=== PATIENT | male | born 1950 | race Caucasian/White ===

== ENCOUNTER → 2017-10-28 12:02 | Outpatient (CLI) | payer MEDICARE, SELFPAY ==
[2017-10-28 14:03] LABS: Alanine Aminotransferase 58 U/L (12-78); Albumin Level 3.7 gm/dL (3.4-5.0); Albumin/Globulin Ratio 1.1 (1.1-1.8); Alkaline Phosphatase 66 U/L (46-116); Anion Gap 14.1 mEq/L (5-15); Aspartate Amino Transferase 29 U/L (15-37); Bilirubin,Total 0.4 mg/dL (0.2-1.0); Blood Urea Nitrogen 16 mg/dL (7-18); Calcium 8.8 mg/dL (8.5-10.1); Carbon Dioxide 27 mmol/L (21.0-32.0); Chloride 104 mmol/L (98-107); Creatinine,Serum 1.01 mg/dL (0.70-1.30); Estimated Glomerular Filt Rate 74 ml/min (>60); GFR (African American) 90 ML/MIN (>60); Globulin 3.4 gm/dl (1.3-3.2); Glucose 138 mg/dL (74-106); Potassium 4.1 mmoL/L (3.5-5.1); Sodium 141 mmol/L (136-145); Total Protein,Serum 7.1 gm/dL (6.4-8.2)
[2017-10-28 16:43] LABS: Basophils # 0.1 K/mm3 (0-0.2); Basophils % 0.9 % (0.1-2.0); Eosinophils # 0.3 K/mm3 (0.0-0.4); Eosinophils % 4.2 % (0.1-12.0); Hemoglobin 14.1 g/dL (14.1-18.0); Lymphocytes # 2.2 K/mm3 (0.7-4.5); Lymphocytes % 29.4 K/mm3 (10-50); Mean Corpuscular HGB Conc 33.6 g/dL (31.8-35.4); Mean Corpuscular Hemoglobin 28.6 pg (27.0-31.2); Mean Corpuscular Volume 85.2 fl (80-94); Mean Platelet Volume 8.1 fl (7.4-10.4); Monocytes # 0.4 K/mm3 (0.1-1.0); Monocytes % 5.7 % (1.7-9.3); Neutrophils # 4.4 K/mm3 (1.8-7.8); Neutrophils % 59.8 % (37.0-80.0); Platelet Count 246 K/mm3 (142-424); Red Blood Count 4.93 M/mm3 (4.60-6.20); Red Cell Distribution Width 13.5 % (11.5-17.5); White Blood Count 7.4 K/mm3 (4.8-10.8)
[2017-10-29 10:36] LABS: Hemoglobin A1C 6.1 % (0.0-7.0)
[2017-10-29 12:16] LABS: Cytomegalovirus (CMV) Ab, IgG <0.60 U/mL (0.00-0.59); Cytomegalovirus (CMV) Ab, IgM <30.0 AU/mL (0.0-29.9); Toxoplasma gondii Ab,IgG,Qn <3.0 IU/mL (0.0-7.1)
[2017-10-29 17:20] LABS: EBV Ab VCA, IgM <36.0 U/mL (0.0-35.9)
[2018-01-24 10:12] LABS: Toxoplasma gondii Ab,IgM,Qn <3.0
== END ==
PROVIDERS: PCP Internal Medicine Adolescent Medicine; Visit Provider Nurse Practitioner Family
DX: R59.0 Localized enlarged lymph nodes (principal); Z00.00 Encounter for general adult medical examination without abnormal findings; R73.09 Other abnormal glucose
CPT/HCPCS: 36415; 80053; 83036; 85025; 86644; 86645; 86665; 86777

== ENCOUNTER → 2017-11-03 09:12 | Outpatient (CLI) | payer MEDICARE, SELFPAY ==
--- NOTE | 2017-11-03 09:20 | US_ITS ---
US soft tissue head and neck CLINICAL INDICATION: ITS.REASON: LYMPHADENOPATHY RT CERVICAL REGION ORDERING PHYSICIAN: Rich Del Valle MD PATIENT AGE: 67 years COMPARISON: None FINDINGS: Survey of the right side of the neck demonstrates a solid-appearing 4.5 x 2.6 cm area of decreased echogenicity in the lower aspect of the right parotid region corresponding to the palpable abnormality. This could represent either parotid mass or unusual enlarged lymph node. Suggest CT scan of the neck without and with contrast for further evaluation. This does not appear to represent an abscess or cystic lesion. IMPRESSION: 4.5 x 2.6 cm hypoechoic lesion in the right neck corresponding to the palpable abnormality and may represent a parotid mass. Recommend CT of the neck without and with contrast for more thorough evaluation
== END ==
PROVIDERS: Family Provider Internal Medicine Adolescent Medicine; PCP Internal Medicine Adolescent Medicine; Visit Provider Internal Medicine Adolescent Medicine
DX: R59.0 Localized enlarged lymph nodes (principal)
CPT/HCPCS: 76536

== ENCOUNTER → 2017-11-08 07:13 | Outpatient (CLI) | payer MEDICARE, SELFPAY ==
[2017-11-08 08:43] LABS: Blood Urea Nitrogen 18 mg/dL (7-18); Creatinine,Serum 1.08 mg/dL (0.70-1.30); Estimated Glomerular Filt Rate 69 ml/min (>60); GFR (African American) 83 ML/MIN (>60)
== END ==
PROVIDERS: Visit Provider Nurse Practitioner Family
DX: R59.0 Localized enlarged lymph nodes (principal)
CPT/HCPCS: 36415; 82565; 84520

== ENCOUNTER → 2017-11-11 08:44 | Outpatient (CLI) | payer MEDICARE, SELFPAY ==
--- NOTE | 2017-11-11 08:50 | CT_ITS ---
CT soft tissue neck wo/w con INDICATION: ITS.REASON: LYMPHADENOPATHY OF RT CERVICAL REGION ORDERING PHYSICIAN: Mariam Oates PATIENT AGE: 67 years COMPARISON: Ultrasound of 11/03/2017 TECHNIQUE: Axial images from the floor of obtained without and with 75 mL of Isovue-370 . Sagittal and coronal reformatted images are reviewed as well. FINDINGS: There is a 3.6 x 3.3 x 2.7 cm well-circumscribed homogeneous slightly hyperdense mass involving the lower pole of the right lobe of the thyroid gland. This is epicentered within the superficial lobe of the thyroid gland. There is mild homogeneous enhancement of this lesion with some increased vascularity along the inferior margin. This has the characteristics of a pleomorphic adenoma. There are scattered small lymph nodes present in both sides of the neck. No dominant adenopathy is evident. Internal jugular nodes on the right measure up to 14 mm. The submandibular glands are unremarkable. The thyroid gland, epiglottis, nasopharynx, and glottic region have an unremarkable appearance. Mucosal thickening involves the ethmoid, sphenoid, and maxillary sinuses bilaterally. IMPRESSION: 3.6 x 3.3 x 2.7 cm well-circumscribed mass involves the lower aspect of the parotid gland on the right with some mild homogeneous enhancement consistent with a pleomorphic adenoma. The differential diagnosis would include a Warthin tumor versus other less common salivary gland tumors. Fine needle aspiration could be performed with ultrasound guidance if clinically warranted. Scattered small cervical lymph nodes.
--- NOTE | 2017-11-11 09:26 | HMH.ITSHM ---
BENICAR VERAPAMIL MONTELUKAST PANTOPRAZOLE MELOXICAM VENTOLIN DULERA FLUTICASONE ASA
== END ==
PROVIDERS: Family Provider Internal Medicine Adolescent Medicine; PCP Internal Medicine Adolescent Medicine; Visit Provider Nurse Practitioner Family
DX: R59.0 Localized enlarged lymph nodes (principal)
CPT/HCPCS: 70492; Q9967

== ENCOUNTER → 2018-07-05 07:09 | Outpatient (CLI) | payer MEDICARE, SELFPAY ==
[2018-07-05 07:29] LABS: Basophils # 0.1 K/mm3 (0-0.2); Basophils % 1.2 % (0.1-2.0); Eosinophils # 0.5 K/mm3 (0.0-0.4); Eosinophils % 5.3 % (0.1-12.0); Hematocrit 44.2 % (42.0-52.0); Hemoglobin 14.6 g/dL (14.1-18.0); Lymphocytes # 2.7 K/mm3 (0.7-4.5); Lymphocytes % 30.6 K/mm3 (10-50); Mean Corpuscular Hemoglobin 28.3 pg (27.0-31.2); Mean Corpuscular Volume 85.8 fl (80-94); Mean Platelet Volume 6.4 fl (7.4-10.4); Monocytes # 0.6 K/mm3 (0.1-1.0); Monocytes % 6.7 % (1.7-9.3); Neutrophils % 56.1 % (37.0-80.0); Platelet Count 250 K/mm3 (142-424); Red Blood Count 5.15 M/mm3 (4.60-6.20); Red Cell Distribution Width 13.5 % (11.5-17.5); White Blood Count 8.8 K/mm3 (4.8-10.8)
[2018-07-05 09:15] LABS: Alanine Aminotransferase 41 U/L (12-78); Albumin Level 3.6 gm/dL (3.4-5.0); Albumin/Globulin Ratio 1.1 (1.1-1.8); Alkaline Phosphatase 70 U/L (46-116); Anion Gap 10.3 mEq/L (5-15); Aspartate Amino Transferase 21 U/L (15-37); Bilirubin,Total 0.5 mg/dL (0.2-1.0); Blood Urea Nitrogen 19 mg/dL (7-18); Calcium 9.1 mg/dL (8.5-10.1); Carbon Dioxide 32 mmol/L (21.0-32.0); Chloride 103 mmol/L (98-107); Cholesterol 140 mg/dL (140-200); Creatinine,Serum 1.18 mg/dL (0.70-1.30); Estimated Glomerular Filt Rate 62 ml/min (>60); GFR (African American) 75 ML/MIN (>60); Globulin 3.3 gm/dl (1.3-3.2); Glucose 119 mg/dL (74-106); HDL Cholesterol 28 mg/dL (27-67); LDL Cholesterol 64 mg/dL (0-130); Potassium 4.3 mmoL/L (3.5-5.1); Sodium 141 mmol/L (136-145); Total Protein,Serum 6.9 gm/dL (6.4-8.2); Triglycerides 239 mg/dL (30-200); VLDL Cholesterol 48 mg/dL (0-40)
[2018-07-05 14:21] LABS: Hemoglobin A1C 6.5 % (0.0-7.0)
== END ==
PROVIDERS: PCP Internal Medicine Adolescent Medicine; Visit Provider Internal Medicine Adolescent Medicine
DX: E78.2 Mixed hyperlipidemia (principal); R73.02 Impaired glucose tolerance (oral); I10 Essential (primary) hypertension; J44.9 Chronic obstructive pulmonary disease, unspecified
CPT/HCPCS: 36415; 80053; 80061; 83036; 85025

== ENCOUNTER → 2019-01-23 07:57 | Outpatient (CLI) | payer MEDICARE, SELFPAY ==
[2019-01-23 08:27] LABS: Basophils # 0.1 K/mm3 (0-0.2); Basophils % 1.1 % (0.1-2.0); Eosinophils # 0.3 K/mm3 (0.0-0.4); Eosinophils % 3.7 % (0.1-12.0); Hematocrit 43.7 % (42.0-52.0); Hemoglobin 14.4 g/dL (14.1-18.0); Lymphocytes # 2.4 K/mm3 (0.7-4.5); Lymphocytes % 30.2 % (10-50); Mean Corpuscular HGB Conc 33.1 g/dL (31.8-35.4); Mean Corpuscular Hemoglobin 28.8 pg (27.0-31.2); Mean Corpuscular Volume 87.1 fl (80-94); Mean Platelet Volume 6.4 fl (7.4-10.4); Monocytes # 0.5 K/mm3 (0.1-1.0); Monocytes % 6.4 % (1.7-9.3); Neutrophils # 4.6 K/mm3 (1.8-7.8); Neutrophils % 58.7 % (37.0-80.0); Platelet Count 234 K/mm3 (142-424); Red Blood Count 5.02 M/mm3 (4.60-6.20); Red Cell Distribution Width 13.5 % (11.5-17.5); White Blood Count 7.9 K/mm3 (4.8-10.8)
[2019-01-23 09:04] LABS: Alanine Aminotransferase 42 U/L (12-78); Albumin Level 3.6 gm/dL (3.4-5.0); Alkaline Phosphatase 69 U/L (46-116); Aspartate Amino Transferase 17 U/L (15-37); Bilirubin,Total 0.4 mg/dL (0.2-1.0); Blood Urea Nitrogen 17 mg/dL (7-18); Calcium 8.8 mg/dL (8.5-10.1); Carbon Dioxide 32 mmol/L (21.0-32.0); Chloride 102 mmol/L (98-107); Chol/HDL Ratio 4.7 (1-3.5); Cholesterol 141 mg/dL (140-200); Creatinine,Serum 1.16 mg/dL (0.70-1.30); Estimated Glomerular Filt Rate 63 ml/min (>60); GFR (African American) 76 ML/MIN (>60); Globulin 3.6 gm/dl (1.3-3.2); Glucose 137 mg/dL (74-106); HDL Cholesterol 30 mg/dL (27-67); LDL Cholesterol 79 mg/dL (0-130); Sodium 141 mmol/L (136-145); Total Protein,Serum 7.2 gm/dL (6.4-8.2); Triglycerides 160 mg/dL (30-200); VLDL Cholesterol 32 mg/dL (0-40)
[2019-01-23 09:25] LABS: Hemoglobin A1C 6.3 % (0.0-7.0)
== END ==
PROVIDERS: Visit Provider Internal Medicine Adolescent Medicine
DX: I10 Essential (primary) hypertension (principal); R73.02 Impaired glucose tolerance (oral)
CPT/HCPCS: 36415; 80053; 80061; 83036; 85025

== ENCOUNTER → 2019-02-13 09:11 | Outpatient (CLI) | payer MEDICARE, SELFPAY ==
[2019-02-13 10:25] LABS: Blood Urea Nitrogen 17 mg/dL (7-18); Creatinine,Serum 1.19 mg/dL (0.70-1.30); Estimated Glomerular Filt Rate 61 ml/min (>60); GFR (African American) 74 ML/MIN (>60)
--- NOTE | 2019-02-13 10:45 | CT_ITS ---
CT soft tissue neck w con CLINICAL INDICATION: Follow-up parotid mass ITS.REASON: MASS OF PAROTIS GLAND ORDERING PHYSICIAN: Jr Jeffrey PATIENT AGE: 69 years COMPARISON: 11/11/2017 TECHNIQUE:Axial images obtained following the intravenous administration of 75 mL of Optiray 350 sagittal and coronal reformats. All CT scans at the facility use one or more dose reduction, viz: automated exposure control, ma/kV adjustment per patient size (including targeted exams where dose is matched to indication, i.e. head), or iterative reconstruction technique. FINDINGS: There is moderate mucosal thickening of the ethmoid sinuses on both sides with opacification of the right aspect of the sphenoid sinus and moderate opacification of the maxillary sinuses on both sides. No obvious nasopharyngeal mass. There is a hyperdense nodule once again noted involving the right aspect of the parotid gland posteriorly measuring 3.6 by 3.6 x 2.8 cm previously 3.6 by 3.1 x 2.7 cm. There is some mild uniform enhancement of the mass. Small bilateral adjacent parotid densities are present which may be due to small lymph nodes not significant change. No new nodules are evident. No cervical adenopathy. Lung apices are clear. IMPRESSION: Slight increase in size of right parotid mass which may represent a pleomorphic adenoma
== END ==
PROVIDERS: Otolaryngology; PCP Internal Medicine Adolescent Medicine; Visit Provider Otolaryngology
DX: R22.1 Localized swelling, mass and lump, neck (principal)
CPT/HCPCS: 36415; 70491; 82565; 84520; Q9967

== ENCOUNTER → 2019-05-16 07:23 | Outpatient (CLI) | payer MEDICARE, SELFPAY ==
[2019-05-16 08:39] LABS: Basophils # 0.1 K/mm3 (0-0.2); Basophils % 0.9 % (0.1-2.0); Eosinophils # 0.2 K/mm3 (0.0-0.4); Eosinophils % 2.8 % (0.1-12.0); Hematocrit 41.6 % (42.0-52.0); Hemoglobin 13.6 g/dL (14.1-18.0); Lymphocytes # 2.3 K/mm3 (0.7-4.5); Lymphocytes % 34.7 % (10-50); Mean Corpuscular HGB Conc 32.7 g/dL (31.8-35.4); Mean Corpuscular Hemoglobin 28.6 pg (27.0-31.2); Mean Corpuscular Volume 87.5 fl (80-94); Mean Platelet Volume 6.6 fl (7.4-10.4); Monocytes # 0.5 K/mm3 (0.1-1.0); Monocytes % 6.8 % (1.7-9.3); Neutrophils # 3.7 K/mm3 (1.8-7.8); Neutrophils % 54.7 % (37.0-80.0); Platelet Count 240 K/mm3 (142-424); Red Blood Count 4.76 M/mm3 (4.60-6.20); Red Cell Distribution Width 13.5 % (11.5-17.5); White Blood Count 6.8 K/mm3 (4.8-10.8)
[2019-05-16 09:16] LABS: Alanine Aminotransferase 39 U/L (12-78); Albumin Level 3.5 gm/dL (3.4-5.0); Albumin/Globulin Ratio 1.1 (1.1-1.8); Alkaline Phosphatase 64 U/L (46-116); Anion Gap 13.4 mEq/L (5-15); Aspartate Amino Transferase 21 U/L (15-37); Bilirubin,Total 0.5 mg/dL (0.2-1.0); Blood Urea Nitrogen 16 mg/dL (7-18); Calcium 8.9 mg/dL (8.5-10.1); Carbon Dioxide 29 mmol/L (21.0-32.0); Chloride 105 mmol/L (98-107); Chol/HDL Ratio 4.3 (1-3.5); Cholesterol 138 mg/dL (140-200); Creatinine,Serum 1.11 mg/dL (0.70-1.30); Estimated Glomerular Filt Rate 66 ml/min (>60); GFR (African American) 80 ML/MIN (>60); Globulin 3.1 gm/dl (1.3-3.2); Glucose 101 mg/dL (74-106); HDL Cholesterol 32 mg/dL (27-67); LDL Cholesterol 80 mg/dL (0-130); Potassium 4.4 mmoL/L (3.5-5.1); Prostate Specific Ag Screen 1.3 ng/mL (0.0-4.0); Sodium 143 mmol/L (136-145); Total Protein,Serum 6.6 gm/dL (6.4-8.2); Triglycerides 129 mg/dL (30-200); VLDL Cholesterol 26 mg/dL (0-40)
[2019-05-16 10:10] LABS: Hemoglobin A1C 6.4 % (0.0-7.0)
== END ==
PROVIDERS: Visit Provider Internal Medicine Adolescent Medicine
DX: E11.9 Type 2 diabetes mellitus without complications (principal); Z12.5 Encounter for screening for malignant neoplasm of prostate
CPT/HCPCS: 36415; 80053; 80061; 83036; 85025; G0103

== ENCOUNTER → 2019-09-18 08:26 | Outpatient (CLI) | payer MEDICARE, SELFPAY | PROVIDERS: PCP Internal Medicine Adolescent Medicine; Visit Provider Nurse Practitioner Family | DX: G47.33 Obstructive sleep apnea (adult) (pediatric) (principal); G47.8 Other sleep disorders; R53.83 Other fatigue | CPT/HCPCS: 94762 ==

== ENCOUNTER → 2019-09-22 09:40 | Outpatient (CLI) | payer MEDICARE, SELFPAY ==
[2019-09-22 10:04] LABS: Basophils # 0.1 K/mm3 (0-0.2); Basophils % 1.3 % (0.1-2.0); Eosinophils # 0.2 K/mm3 (0.0-0.4); Eosinophils % 3.4 % (0.1-12.0); Hematocrit 44.7 % (42.0-52.0); Hemoglobin 14.6 g/dL (14.1-18.0); Lymphocytes # 1.9 K/mm3 (0.7-4.5); Mean Corpuscular HGB Conc 32.6 g/dL (31.8-35.4); Mean Corpuscular Hemoglobin 28.8 pg (27.0-31.2); Mean Corpuscular Volume 88.2 fl (80-94); Mean Platelet Volume 7.5 fl (7.4-10.4); Monocytes # 0.3 K/mm3 (0.1-1.0); Monocytes % 5.1 % (1.7-9.3); Neutrophils % 61.2 % (37.0-80.0); Platelet Count 249 K/mm3 (142-424); Red Blood Count 5.06 M/mm3 (4.60-6.20); Red Cell Distribution Width 13.3 % (11.5-17.5); White Blood Count 6.6 K/mm3 (4.8-10.8)
[2019-09-22 11:08] LABS: Alanine Aminotransferase 31 U/L (12-78); Albumin Level 3.7 gm/dL (3.4-5.0); Albumin/Globulin Ratio 1.2 (1.1-1.8); Alkaline Phosphatase 72 U/L (46-116); Anion Gap 10.4 mEq/L (5-15); Aspartate Amino Transferase 15 U/L (15-37); Bilirubin,Total 0.3 mg/dL (0.2-1.0); Blood Urea Nitrogen 23 mg/dL (7-18); Calcium 8.9 mg/dL (8.5-10.1); Carbon Dioxide 31 mmol/L (21.0-32.0); Chloride 103 mmol/L (98-107); Creatinine,Serum 1.19 mg/dL (0.70-1.30); Estimated Glomerular Filt Rate 61 ml/min (>60); GFR (African American) 74 ML/MIN (>60); Globulin 3.1 gm/dl (1.3-3.2); Glucose 118 mg/dL (74-106); Potassium 4.4 mmoL/L (3.5-5.1); Sodium 140 mmol/L (136-145); Thyroid Stimulating Hormone 2.41 uIU/ml (0.358-3.740); Total Protein,Serum 6.8 gm/dL (6.4-8.2)
[2019-09-24 17:59] LABS: Vitamin B12 390 pg/mL (232-1245); Vitamin D 25 Hydroxy 26.1 ng/mL (30.0-100.0)
[2019-09-28 12:39] LABS: Testosterone, Total, LC/MS 169.8
[2019-09-28 12:40] LABS: Testosterone,Free 7.1
== END ==
PROVIDERS: Visit Provider Nurse Practitioner Family
DX: R53.83 Other fatigue (principal); E55.9 Vitamin D deficiency, unspecified
CPT/HCPCS: 36415; 80053; 82607; 82652; 84402; 84403; 84443; 85025

== ENCOUNTER → 2020-02-23 07:32 | Outpatient (CLI) | payer MEDICARE, SELFPAY ==
[2020-02-23 08:56] LABS: Basophils # 0.1 K/mm3 (0-0.2); Eosinophils # 0.2 K/mm3 (0.0-0.4); Eosinophils % 2.7 % (0.1-12.0); Hematocrit 45.2 % (42.0-52.0); Hemoglobin 15.4 g/dL (14.1-18.0); Lymphocytes # 2.2 K/mm3 (0.7-4.5); Lymphocytes % 27.8 % (10-50); Mean Corpuscular HGB Conc 34.1 g/dL (31.8-35.4); Monocytes # 0.5 K/mm3 (0.1-1.0); Monocytes % 6.3 % (1.7-9.3); Neutrophils # 4.9 K/mm3 (1.8-7.8); Neutrophils % 62.2 % (37.0-80.0); Platelet Count 245 K/mm3 (142-424); Red Blood Count 5.14 M/mm3 (4.60-6.20); Red Cell Distribution Width 13.7 % (11.5-17.5); White Blood Count 7.9 K/mm3 (4.8-10.8)
[2020-02-23 09:16] LABS: Alanine Aminotransferase 35 U/L (12-78); Albumin Level 4.4 g/dl (3.5-5.0); Albumin/Globulin Ratio 1.5 (1.1-1.8); Alkaline Phosphatase 78 U/L (38-126); Anion Gap 11.5 mEq/L (5-15); Aspartate Amino Transferase 33 U/L (17-59); Bilirubin,Total 0.3 mg/dl (0.2-1.3); Blood Urea Nitrogen 20 mg/dl (9-20); Calcium 9.7 mg/dl (8.4-10.2); Carbon Dioxide 32 mmol/L (22.0-30.0); Chloride 100 mmol/L (98-107); Chol/HDL Ratio 4.3 (1-3.5); Cholesterol 149 mg/dl (140-200); Estimated Glomerular Filt Rate 67 ml/min (>60); GFR (African American) 81 ML/MIN (>60); Globulin 2.9 g/dL (1.3-3.2); Glucose 135 mg/dl (74-100); HDL Cholesterol 35 mg/dl (40-60); Potassium 4.5 mmoL/L (3.5-5.1); Sodium 139 mmol/L (136-145); Total Protein,Serum 7.3 g/dl (6.3-8.2); Triglycerides 210 mg/dl (30-150); VLDL Cholesterol 42 mg/dL (0-40)
[2020-02-23 09:21] LABS: Hemoglobin A1C 6.5 % (4.0-6.0)
[2020-02-23 10:53] LABS: 25-OH Vitamin D, Total 42.5 ng/mL (30-100)
== END ==
PROVIDERS: Visit Provider Nurse Practitioner Family
DX: E78.2 Mixed hyperlipidemia (principal); I10 Essential (primary) hypertension; E11.9 Type 2 diabetes mellitus without complications; E55.9 Vitamin D deficiency, unspecified; G47.33 Obstructive sleep apnea (adult) (pediatric)
CPT/HCPCS: 36415; 80053; 80061; 82306; 83036; 85025

== ENCOUNTER → 2020-02-27 08:45 | Outpatient (CLI) | payer MEDICARE, SELFPAY ==
--- NOTE | 2020-02-27 08:48 | US_ITS ---
PROCEDURE: US ABDOMEN COMPLETE CLINICAL INDICATION: ABD PAIN Left upper quadrant pain, COMPARISON: RUQ US RUQ-(ABD LTD)1ORGAN/QUAD/FU from 02/13/2013 FINDINGS: PANCREAS: Pancreas is not well delineated due to overlying bowel gas. CT or MRI without and with contrast with pancreatic protocol may provide further evaluation if clinically desired. LIVER: Mild diffuse increased echogenicity of the liver suspicious fatty liver. No focal liver lesions evident. There is appropriate direction of blood flow within a non dilated portal vein. There has been a prior cholecystectomy. Common bile duct is normal at 3 mm RIGHT KIDNEY: Unremarkable. Normal size and echogenicity. No hydronephrosis LEFT KIDNEY: Unremarkable. Normal size and echogenicity. No hydronephrosis GALLBLADDER: Prior cholecystectomy AORTA: No evidence of aneurysmal dilatation. SPLEEN: Mild splenomegaly at 14 cm ASCITES: None demonstrated. IMPRESSION: Status post cholecystectomy with fatty liver. Pancreas not well delineated Mild splenomegaly Dictated by: Romel Tobias MD 02/27/2020 16:01 Electronically signed by Romel Tobias MD in [place] 02/27/2020 16:01
== END ==
PROVIDERS: PCP Internal Medicine Adolescent Medicine; Visit Provider Nurse Practitioner Family
DX: R10.12 Left upper quadrant pain (principal); R10.32 Left lower quadrant pain
CPT/HCPCS: 76700

== ENCOUNTER 2020-04-02 10:00 | Outpatient (RCR) | payer MEDICARE, SELFPAY ==
--- NOTE | 2020-03-12 15:14 | HMH.PTOPEV ---
PT Outpatient Evaluation Rehab PT Outpatient Evaluation Start: 03/12/20 14:34 Freq: Status: Active Protocol: Document 03/12/20 14:49 ROXANNE (Rec: 03/12/20 15:08 ROXANNE [id number]) Electronically Signed By Heath Blue, PT 03/12/20 14:49 Outpatient Therapy Subjective History Subjective History Patient is a 70 year old male presenting to outpatient PT with reports of L sided groin pain that radiates to L upper lumbar/lower thoracic spine. Symptoms started approx 6 months ago of insidious onset. Signs and symptoms consistent with illiopsoas mm strain. No recent imaging to report. Comorbidities include hx of cholecystectomy, hernia and elevated liver enzymes. Chief Complaint Pain Symptom Type Sharp Symptoms Relieved By Rest/Positioning Symptoms Aggravated By Physical Activity,Lifting Prior Functional Limitations None Current Functional Limitations Reaching,Lifting,Housework, Standing,Squatting,Recreation Activity Symptom Description Constant but Variable Level of pain today (0-10) 3 Pain scale - at its best (0-10) 2 Pain scale - at its worst (0-10) 7 Lumbopelvic Eval Posture Thoracic Spine Posture Standing Position Increased Kyphosis Lumbar Spine Posture Standing Position Neutral Palapation tenderness left thoracic spinal tenderness Yes: 3/4 tenderness over symphysis pubis Yes: distal illiopsoas insertion 4/4 Range of Motion Lumbar Spine ROM Reason Not Measured Within Functional Limits Manual Muscle Test Bilateral Knee Extension Strength Grade 5 Normal Knee Flexion Strength Grade 5 Normal Hip Flexion Strength Grade 5 Normal Ankle Dorsiflexion Strength Grade 5 Normal Gastronemius/Soleus Strength Grade 5 Normal DTR Rt Patellar 2+ Lt Patellar 2+ Rt Gastroc/Soleus 2+ Lt Gastroc/Soleus 2+ Special Tests Lumbar Spine Screen Positive Hip Aric (ISAURO) Test Positive Left,Positive Right Hip Ashley Test Positive Left,Positive Right Hip Piriformis Test Positive Left,Positive Right Sciatic Nerve Tension Test Negative Left Marcelo Test Positive Outpatient Therapy Assessment Impairments Problems/Impairmments Palpation Tenderness,Impaired Range of Motion,Impaired
== END 2020-04-02 10:05 | disposition home or self-care (01) ==
LOC: PT 10:00
PROVIDERS: PCP Internal Medicine Adolescent Medicine; Visit Provider Internal Medicine Adolescent Medicine
DX: M62.830 Muscle spasm of back (principal)
CPT/HCPCS: 97010; 97014; 97110; 97140; 97163; G0283

== ENCOUNTER → 2020-11-05 07:14 | Outpatient (CLI) | payer MEDICARE, SELFPAY ==
[2020-11-05 08:06] LABS: Hemoglobin A1C 5.9 % (4.0-6.0)
[2020-11-05 08:26] LABS: Chloride 104 mmol/L (98-107); Potassium 4.6 mmoL/L (3.5-5.1); Sodium 140 mmol/L (136-145)
[2020-11-05 08:29] LABS: Alanine Aminotransferase 27 U/L (12-78); Albumin Level 4.2 g/dl (3.5-5.0); Albumin/Globulin Ratio 1.4 (1.1-1.8); Alkaline Phosphatase 65 U/L (38-126); Anion Gap 10.6 mEq/L (5-15); Aspartate Amino Transferase 27 U/L (17-59); Bilirubin,Total 0.5 mg/dl (0.2-1.3); Blood Urea Nitrogen 24 mg/dl (9-20); Carbon Dioxide 30 mmol/L (22.0-30.0); Cholesterol 137 mg/dl (140-200); Estimated Glomerular Filt Rate 67 ml/min (>60); GFR (African American) 81 ML/MIN (>60); Globulin 3.1 g/dL (1.3-3.2); Total Protein,Serum 7.3 g/dl (6.3-8.2); Triglycerides 163 mg/dl (30-150); VLDL Cholesterol 33 mg/dL (0-40)
[2020-11-05 08:30] LABS: Calcium 9.7 mg/dl (8.4-10.2); Chol/HDL Ratio 4.3 (1-3.5); Glucose 123 mg/dl (74-100); HDL Cholesterol 32 mg/dl (40-60)
== END ==
PROVIDERS: Visit Provider Internal Medicine Adolescent Medicine
DX: I10 Essential (primary) hypertension (principal); E78.2 Mixed hyperlipidemia; E11.9 Type 2 diabetes mellitus without complications
CPT/HCPCS: 36415; 80053; 80061; 83036

== ENCOUNTER 2021-03-13 12:50 | Emergency (ER) | payer MEDICARE, SELFPAY ==
[2021-03-13 12:50] VITALS: BP 142/83; PULSE 72; RESP 16; TEMP 36.9; O2SAT 98; BMI 37.7
--- NOTE | 2021-03-13 13:56 | HMH.EDUTC ---
[facility] [place]ression: [place]usitis Qualifiers: Sinusitis location: unspecified location Chronicity: unspecified Qualified Code(s): J32.9 - Chronic sinusitis, unspecified Disposition: Home, Self-Care Condition on Discharge: Good Instructions: DI for Sinusitis, DI for Contact Dermatitis, DI for General Allergic Reactions Additional Instructions: Apply A&D ointment to forehead and nose to help with dryness Take medication as prescribed Follow up with your Family Doctor if no improvement or any worsening of symptoms Straight to the ER if any life threatening symptoms *Monitor Temp, Over the counter Motrin or Tylenol as directed/as needed Tylenol every 4 hours and Motrin every 6 hours (as long as your family doctor has told you that you can take it) for fever or pain. and straight to ER if unable to lower temp less than 101.0 after medication given *Warm salt water gargles may help to soothe the throat *Throat Lozenges *Warm fluids like tea with honey may help to soothe the throat *Sleep elevated *Humidifier/Vaporizer Follow up IMMEDIATELY for new or worsening symptoms or no Noticeable improvement over the next 48-72 hours. 911 for difficulty breathing or swallowing Prescriptions: Azithromycin [Z-Romulo 250mg Tab] 250 mg PO DIRECTED #6 tab Transmission Status: Received by [facility] Referrals: Rich Del Valle MD [Primary Care Provider] - As needed Medical Decision Making - Jose Inquiry Pt receiving controlled substance: No Jose was queried for this patient: No Vital Signs: 03/13/21 12:50 03/13/21 14:26 Temperature 98.4 F 98.4 F Temperature Source Oral Pulse Rate 72 Pulse Rate [Right Brachial] 72 Respiratory Rate 16 16 Blood Pressure 142/83 H Blood Pressure [Right Arm] 142/83 H Blood Pressure Mean [Right Arm] 102 Blood Pressure Source [Right Arm] Automatic Cuff Blood Pressure Position [Right Arm] Sitting 02 Sat by Pulse Oximetry 98 Oxygen Delivery Method Room Air Orders (Tests/Meds): ED MEDICATIONS Discontinued Medications Generic Name Dose Route Start Last Admin Trade Name Freq PRN Reason Stop Dose Admin Methylprednisolone Sodium Succinate 125 mg 03/13/21 14:00 03/13/21 14:08 Methylprednisolone Sod Succ 125mg Vial IM 03/13/21 14:01 125 mg ONCE ONE Administration [facility] [place] - General Stated complaint: cough, rash on face Time Seen by Provider: 03/13/21 13:56 Mode of Arrival: Ambulatory Source of Information: Patient Limitations: No Limitations Description of Symptoms (Recalled from Triage Doc. by RN): PATIENT C/O HAVING A COLD AND RASH TO FOREHEAD AND CHEEKS X 1 WEEK HEENT Symptoms (Recalled from RN notes): Yes Resp Symptoms (Recalled from RN notes): No Skin Symptoms (Recalled from RN notes): Yes MS Symptoms (Recalled from RN notes): No Functional Status (Recalled from RN notes): WNL - History of Present Illness Provider Complaint: Patient states that he has been having sinus pressure and drainage for over a week, States that he had cleaned his Cpap machine with lysol and then work it that night State that he has had welps on his face ever since with mild swelling States that he noticed it looked like the rash was starting to spread - Related Data Home Medications Medication Instructions Recorded Confirmed montelukast 10 mg tablet 10 mg PO DAILY tab 08/29/19 03/13/21 verapamil 360 mg 24 hr 360 mg PO DAILY cap 03/25/20 03/13/21 capsule,extended release Pantoprazole Sodium [Protonix 40mg 40 mg PO HS 03/13/21 03/13/21 tablet] Previous Rx's Medication Instructions Recorded Azithromycin [Z-Romulo 250mg Tab] 250 mg PO DIRECTED #6 tab 03/13/21 Allergies Allergy/AdvReac Type Severity Reaction Status Date / Time Penicillins Allergy Unknown Verified 03/25/20 09:30 - Worker's Comp Is this a Worker's Comp case?: No [facility] History - Hepatitis A Screen Drug use history?: No High risk sexual behaviors?: N
[2021-03-13 14:26] VITALS: BP 142/83; PULSE 72; RESP 16; TEMP 36.9; O2SAT 98
== END 2021-03-13 14:29 | disposition home or self-care (01) ==
PROVIDERS: Emergency Provider Nurse Practitioner; PCP Internal Medicine Adolescent Medicine
DX: J32.9 Chronic sinusitis, unspecified (principal); Z88.0 Allergy status to penicillin
CPT/HCPCS: G0463; 96372; 99202

== ENCOUNTER 2021-08-23 12:37 | Emergency (ER) | payer MEDICARE, SELFPAY ==
[2021-08-23 13:15] VITALS: BP 168/88; PULSE 77; RESP 19; TEMP 37.1; O2SAT 96; BMI 40.6
--- NOTE | 2021-08-23 13:39 | HMH.EDUTC ---
[facility] [place]ression: Cellulitis Qualifiers: Site of cellulitis: extremity Site of cellulitis of extremity: lower extremity Laterality: right Qualified Code(s): L03.115 - Cellulitis of right lower limb Disposition: Home, Self-Care Condition on Discharge: Good Instructions: Cellulitis Additional Instructions: follow up with pcp on wednesday if worsen return or be seen on ed antibotics as ordered keep area clean and dry Prescriptions: Mupirocin [Bactroban 2% Ointment 22gm tube] 1 applicatio TP BID 10 Days #15 gm Transmission Status: P[facility] to [facility] cephALEXin [Cephalexin 500mg Tab] 500 mg PO BID 10 Days #20 tab Transmission Status: Pending to [facility] Referrals: Rich Del Valle MD [Primary Care Provider] - Medical Decision Making - Jose Inquiry Pt receiving controlled substance: No Vital Signs: 08/23/21 13:15 Temperature 98.7 F Temperature Source Oral Pulse Rate [Right Brachial] 77 Respiratory Rate 19 Blood Pressure [Right Arm] 168/88 H Blood Pressure Mean [Right Arm] 114 Blood Pressure Source [Right Arm] Automatic Cuff Blood Pressure Position [Right Arm] Sitting 02 Sat by Pulse Oximetry 96 Oxygen Delivery Method Room Air [facility] [place] - General Chief complaint: Urgent [facility] Stated complaint: right leg wound, no accident Time Seen by Provider: 08/23/21 13:39 Mode of Arrival: Ambulatory Source of Information: Patient Limitations: No Limitations Description of Symptoms (Recalled from Triage Doc. by RN): PATIENT C/O SWELLING TO RIGHT KNEE. HE REPORTS THE COMPRESSION SOCKS HE WORE RUBBED A SORE ON HIS RIGHT CALF ON WEDNESDAY HEENT Symptoms (Recalled from RN notes): No Resp Symptoms (Recalled from RN notes): No Skin Symptoms (Recalled from RN notes): Yes MS Symptoms (Recalled from RN notes): Yes Functional Status (Recalled from RN notes): WNL - History of Present Illness Provider Complaint: 71 yr old male presents for swelling and 2 open areas on rt lower leg. pt states he wore compression socks and they rubbed 2 sores on rt calf on - Related Data Home Medications Medication Instructions Recorded Confirmed montelukast 10 mg tablet 10 mg PO DAILY tab 08/29/19 03/26/21 verapamil 360 mg 24 hr 360 mg PO DAILY cap 03/25/20 03/26/21 capsule,extended release Pantoprazole Sodium [Protonix 40mg 40 mg PO HS 03/13/21 03/26/21 tablet] albuterol sulfate 90 mcg/actuation 2 puff INHALATION Q6H PRN 03/26/21 03/26/21 aerosol inhaler aspirin 81 mg tablet,delayed 81 mg PO DAILY 03/26/21 03/26/21 release cholecalciferol (vitamin D3) 25 25 mcg PO DAILY tab 03/26/21 03/26/21 mcg (1,000 unit) tablet coenzyme Q10 50 mg tablet 50 mg PO DAILY 03/26/21 03/26/21 fluticasone propionate 50 1 spray INTRANASAL DAILY 03/26/21 03/26/21 mcg/actuation nasal spray,suspension meloxicam 15 mg tablet 15 mg PO DAILY 03/26/21 03/26/21 mometasone-formoterol HFA 200 2 puff INHALATION BID 03/26/21 03/26/21 mcg-5 mcg/actuation aerosol inhaler olmesartan 40 1 tab PO DAILY tab 03/26/21 03/26/21 mg-hydrochlorothiazide 25 mg tablet omega-3 fatty acids 1,000 mg 1,000 mg PO DAILY 03/26/21 03/26/21 capsule Previous Rx's Medication Instructions Recorded Mupirocin [Bactroban 2% Ointment 1 applicatio TP BID 10 Days #15 gm 08/23/21 22gm tube] cephALEXin [Cephalexin 500mg Tab] 500 mg PO BID 10 Days #20 tab 08/23/21 Allergies Allergy/AdvReac Type Severity Reaction Status Date / Time Penicillins Allergy Unknown Verified 03/26/21 08:41 - Worker's Comp Is this a Worker's Comp case?: No [facility] History - Hepatitis A Screen Drug use history?: No High risk sexual behaviors?: No History of sexually transmitted infection?: No Currently employed?: No Childcare worker?: No Do you have indoor plumbing?: Yes Do you have electricity?: Yes Attestation statement:: This patient has been screened for Hepatitis A risk factors. I have revi
[2021-08-23 13:48] VITALS: BP 166/88; PULSE 77; RESP 19; TEMP 37.1; O2SAT 96
== END 2021-08-23 13:51 | disposition home or self-care (01) ==
PROVIDERS: Emergency Provider Nurse Practitioner Family; PCP Internal Medicine Adolescent Medicine
DX: L03.115 Cellulitis of right lower limb (principal); I10 Essential (primary) hypertension; J45.909 Unspecified asthma, uncomplicated; Z79.899 Other long term (current) drug therapy; R60.0 Localized edema
CPT/HCPCS: G0463; 99202

== ENCOUNTER → 2021-09-05 14:16 | Outpatient (CLI) | payer MEDICARE, SELFPAY | PROVIDERS: PCP Internal Medicine Adolescent Medicine; Visit Provider Nurse Practitioner Family | DX: Z20.822 Contact with and (suspected) exposure to COVID-19 (principal) | CPT/HCPCS: C9803; U0003; U0005 ==

== ENCOUNTER → 2022-11-13 07:17 | Outpatient (CLI) | payer MEDICARE, SELFPAY ==
--- NOTE | 2022-11-13 07:48 | XR_ITS ---
FINAL REPORT CLINICAL HISTORY: KNEE PAIN COMPARISON: none FINDINGS: Three views of the right knee were obtained. There is no prior exam for comparison. There is no acute fracture or dislocation. There is degenerative joint disease most pronounced at the patellofemoral compartment. The soft tissues are normal. There is no joint effusion. IMPRESSION: Degenerative disease with no acute osseous abnormality of the right knee. Reviewed, Interpreted and Dictated by Ninfa Loja MD Transcribed by Liz Mo Authenticated and [facility]
[2022-11-13 07:51] LABS: Basophils # 0.1 K/mm3 (0-0.2); Basophils % 1.5 % (0.1-2.0); Eosinophils # 0.2 K/mm3 (0.0-0.4); Eosinophils % 3.2 % (0.1-12.0); Hematocrit 41.8 % (42.0-52.0); Hemoglobin 13.4 g/dL (14.1-18.0); Lymphocytes % 27.6 % (10-50); Mean Corpuscular Hemoglobin 25.7 pg (27.0-31.2); Mean Corpuscular Volume 80.5 fl (80-94); Mean Platelet Volume 7.3 fl (7.4-10.4); Monocytes # 0.4 K/mm3 (0.1-1.0); Monocytes % 5.8 % (1.7-9.3); Neutrophils # 4.5 K/mm3 (1.8-7.8); Neutrophils % 61.8 % (37.0-80.0); Platelet Count 283 K/mm3 (142-424); Red Blood Count 5.19 M/mm3 (4.60-6.20); Red Cell Distribution Width 15.4 % (11.5-17.5); White Blood Count 7.3 K/mm3 (4.8-10.8)
[2022-11-13 08:22] LABS: Hemoglobin A1C 6.6 % (4.0-6.0)
[2022-11-13 10:09] LABS: Alanine Aminotransferase 36 U/L (12-78); Albumin Level 4.4 g/dl (3.5-5.0); Albumin/Globulin Ratio 1.6 (1.1-1.8); Alkaline Phosphatase 85 U/L (38-126); Anion Gap 13.2 mEq/L (5-15); Aspartate Amino Transferase 36 U/L (17-59); Bilirubin,Total 0.6 mg/dl (0.2-1.3); Blood Urea Nitrogen 19 mg/dl (9-20); Calcium 9.3 mg/dl (8.4-10.2); Carbon Dioxide 27 mmol/L (22.0-30.0); Chloride 101 mmol/L (98-107); Chol/HDL Ratio 5.2 (1-3.5); Cholesterol 146 mg/dl (140-200); Estimated Glomerular Filt Rate 66 ml/min (>60); GFR (African American) 80 ML/MIN (>60); Globulin 2.8 g/dL (1.3-3.2); Glucose 126 mg/dl (74-100); HDL Cholesterol 28 mg/dl (40-60); Potassium 4.2 mmoL/L (3.5-5.1); Sodium 137 mmol/L (136-145); Total Protein,Serum 7.2 g/dl (6.3-8.2); Triglycerides 222 mg/dl (30-150); VLDL Cholesterol 44 mg/dL (0-40)
[2022-11-13 10:20] LABS: Direct LDL Cholesterol 83.77 mg/dL (100-129)
== END ==
PROVIDERS: PCP Internal Medicine Adolescent Medicine; Visit Provider Internal Medicine Adolescent Medicine
DX: E11.9 Type 2 diabetes mellitus without complications (principal); E78.2 Mixed hyperlipidemia; B35.1 Tinea unguium; M25.561 Pain in right knee
CPT/HCPCS: 36415; 73562; 80053; 80061; 83036; 85025

== ENCOUNTER → 2022-12-28 09:06 | Outpatient (CLI) | payer MEDICARE, SELFPAY ==
--- NOTE | 2022-12-28 09:11 | US_ITS ---
FINAL REPORT TECHNIQUE: Limited ultrasound imaging of the aorta was obtained. CLINICAL HISTORY: NICOTINE DEPENDENCE HISTORY FINDINGS: Exam is technically limited due to bowel gas. The aorta measures up to 1.5 cm. IMPRESSION: No evidence of abdominal aortic aneurysm. Reviewed, Interpreted and Dictated by Yrn Boyd III, MD Transcribed by Renetta Dee Authenticated and . [facility]
== END ==
PROVIDERS: PCP Internal Medicine Adolescent Medicine; Visit Provider Internal Medicine Adolescent Medicine
DX: Z87.891 Personal history of nicotine dependence (principal)
CPT/HCPCS: 76705

== ENCOUNTER → 2023-05-14 08:49 | Outpatient (CLI) | payer MEDICARE, SELFPAY ==
--- NOTE | 2023-05-14 08:52 | XR_ITS ---
FINAL REPORT TECHNIQUE: Chest PA & Lateral CLINICAL HISTORY: ACUTE COUGH COMPARISON: None FINDINGS: 2 views of the chest were performed. The heart size is normal. The mediastinum is within normal limits. There is no acute cardiopulmonary process. There are no pleural effusions. There is no pneumothorax. The bony thorax appears intact. IMPRESSION: No acute cardiopulmonary process. Reviewed, Interpreted and Dictated by Toñito Chau MD Transcribed by Liz Mo Authenticated and [facility]
== END ==
PROVIDERS: PCP Nurse Practitioner Family; Visit Provider Nurse Practitioner Family
DX: R05.1 Acute cough (principal); R06.2 Wheezing
CPT/HCPCS: 71046

== ENCOUNTER → 2023-07-09 14:12 | Outpatient (CLI) | payer MEDICARE, SELFPAY ==
--- NOTE | 2023-07-09 14:18 | CT_ITS ---
FINAL REPORT TECHNIQUE: Axial images were obtained from the lung apex to the mid abdomen by computed tomography. This study was performed with techniques to keep radiation doses as low as reasonably achievable (ALARA). Individualized dose reduction techniques using automated exposure control or adjustment of mA and/or kV according to the patient's size were employed. CLINICAL HISTORY: SCREENING former smoker, quit 23 years ago. 2ppd x 20 years FINDINGS: CHEST CT LOW DOSE CTDI vol (mGy): 2.90 DLP (mGy-cm): 117.24 There is moderate coronary artery calcification. There is no axillary adenopathy. There is no hilar or mediastinal adenopathy. The heart is normal in size. There is no pericardial or pleural effusion. There is a 4 mm nodule in the anterior minor fissure well seen on image 52. Several calcified granulomas are identified. Limited images of the upper abdomen are unremarkable. IMPRESSION: Nodule in the anterior minor fissure. Lung RADS category 2. Recommend 12 month follow-up low-dose chest CT. Reviewed, Interpreted and Dictated by Yrn Boyd III, MD Transcribed by Diane Guajardo Authenticated and [facility]
== END ==
PROVIDERS: PCP Nurse Practitioner Family; Visit Provider Internal Medicine Adolescent Medicine
DX: Z87.891 Personal history of nicotine dependence (principal)
CPT/HCPCS: 71271

== ENCOUNTER 2023-09-30 16:01 | Emergency (ER) | payer MEDICARE, SELFPAY ==
[2023-09-30] VITALS (8 sets, daily range): BP systolic 155–204; BP diastolic 87–120; PULSE 85–91; RESP 20; TEMP 36.6; O2SAT 97–99; BMI 37.5
--- NOTE | 2023-09-30 16:21 | XR_ITS ---
PROCEDURE INFORMATION: Exam: XR Right Hand Exam date and time: 09/30/2023 4:19 PM Age: 73 years old Clinical indication: Injury or trauma; Other: Smashed hand/laceration; Right; Ring finger and little finger; Additional info: R pinky and ring finger pip trauma TECHNIQUE: Imaging protocol: Radiologic exam of the right hand. Views: 3 or more views. COMPARISON: No relevant prior studies available. FINDINGS: Bones/joints: There is diffuse soft tissue swelling involving the 5th PIP joint. No radiopaque foreign body. No visible fracture or dislocation. Soft tissues: See Bones/joints finding. IMPRESSION: 1. There is diffuse soft tissue swelling involving the 5th PIP joint. No radiopaque foreign body. 2. No visible fracture or dislocation.
--- NOTE | 2023-09-30 16:23 | HMH.EDGENADL ---
Discharge Plan Disposition Patient Disposition: Xfer Short-Term Hosp Prescriptions Prescriptions: No Action montelukast 10 mg tablet 10 mg PO DAILY verapamil 360 mg capsule,ext rel. pellets 24 hr 360 mg PO DAILY olmesartan-hydrochlorothiazide 40-25 mg tablet 1 tab PO DAILY cholecalciferol (vitamin D3) 25 mcg (1,000 unit) tablet 25 mcg PO DAILY Patient Comments: TAKE ONE TABLET BY MOUTH EVERY DAY meloxicam 15 mg tablet 15 mg PO DAILY albuterol sulfate [Ventolin HFA] 90 mcg/actuation HFA aerosol inhaler 2 puff INHALATION Q6H PRN Dulera 200-5 mcg/actuation HFA aerosol inhaler 2 puff INHALATION BID fluticasone propionate [Flonase Allergy Relief] 50 mcg/actuation spray,suspension 1 spray INTRANASAL DAILY Rx Instructions: administer into each nostril aspirin [Adult Aspirin Regimen] 81 mg tablet,delayed release (DR/EC) 81 mg PO DAILY omega-3 fatty acids [Fish Oil Concentrate] 1,000 mg capsule 1,000 mg PO DAILY coenzyme Q10 50 mg tablet 50 mg PO DAILY cephalexin 500 MG tablet 500 mg PO BID 10 Days Qty: 20 0RF mupirocin 22 GM ointment 1 applicatio TP BID 10 Days Qty: 15 0RF Rx Instructions: apply to leg pantoprazole 40 MG tablet,delayed release (DR/EC) 40 mg PO HS Referrals Follow up/Referrals: Rich Del Valle MD [Primary Care Provider] - See instructions Activity Restrictions/Add. Instructions Additional Instructions/Restrictions: Please present immediately to [facility] emergency department for continued evaluation. Clinical Impressions Clinical Impression: Hand trauma, Hand laceration Discharge ED Provider: Francis Rodriguez General Adult HPI General Chief complaint: Wound/Laceration Stated complaint: [id number], 1545 rt little finger injury Time Seen by Provider: 09/30/23 16:03 Mode of Arrival: Ambulatory Source of Information: Patient Limitations: No Limitations Description of Symptoms (Recalled from ER Triage Doc. by RN): Patient reports he cut his finger on a cellar door about 30 minutes ago. Patient has large laceration to right hand pinky finger. Bleeding is controlled at this time and patient reports no pain. History of Present Illness HPI narrative: Patient is a 73-year-old male with no pertinent past medical history, right-handed who presents to the emergency department for evaluation of traumatic injury sustained to his right hand. Patient slammed his hand in a cellar door on accident causing a circumferential wound to his right pinky and dorsal aspect of his right fourth PIP joint. Last Tdap within the last 5 years. Wound was hemostatic prior to arrival. No other traumatic complaints at this time. Related Data Home Medications Medication Instructions Recorded Confirmed montelukast 10 mg tablet 10 mg PO DAILY Allergy symptoms 08/29/19 03/26/21 verapamil 360 mg 24 hr 360 mg PO DAILY . 03/25/20 03/26/21 capsule,extended release pantoprazole 40 mg tablet,delayed 40 mg PO HS GERD 03/13/21 03/26/21 release albuterol sulfate 90 mcg/actuation 2 puff inhalation Q6H PRN 03/26/21 03/26/21 aerosol inhaler (Ventolin HFA) aspirin 81 mg tablet,delayed 81 mg PO DAILY 03/26/21 03/26/21 release (Adult Aspirin Regimen) cholecalciferol (vitamin D3) 25 25 mcg PO DAILY 03/26/21 03/26/21 mcg (1,000 unit) tablet coenzyme Q10 50 mg tablet 50 mg PO DAILY 03/26/21 03/26/21 fluticasone propionate 50 1 spray intranasal DAILY 03/26/21 03/26/21 mcg/actuation nasal spray,suspension (Flonase Allergy Relief) meloxicam 15 mg tablet 15 mg PO DAILY 03/26/21 03/26/21 mometasone-formoterol HFA 200 2 puff inhalation BID 03/26/21 03/26/21 mcg-5 mcg/actuation aerosol inhaler (Dulera) olmesartan 40 1 tab PO DAILY 03/26/21 03/26/21 mg-hydrochlorothiazide 25 mg tablet omega-3 fatty acids 1,000 mg 1,000 mg PO DAILY 03/26/21 03/26/21 capsule (Fish Oil Concentrate) Previous Rx's Medication Instructions Recorded cephalexin 500 mg tablet 500 mg PO BID 10 days #20 tabs 08/23/21 mupirocin 2 % topical ointment 1 applicatio TP BID 10 days ##15 08/23/21 Allergies Allergy/AdvReac Type Severity Reaction Status Date / Time Penicillins Allergy Unknown Verified 03/26/21 08:41 [facility] Disclaimer: The information contained in this section may have been updated after the patient was seen, as this information can be updated by other users. Social History Smoking Status: Former smoker alcohol intake: never substance use type: denies use current occupational status: other Travel in the last 8 weeks: None household members: spouse housing: house ROS Obtained: Yes Systems reviewed as appropriate & no additional complaints except as documented Physical Exam General General appearance: alert and in no apparent distress Head Head exam: atraumatic and normocephalic Eye Eye exam: Present PERRL ENT ENT exam: Present mucous membranes moist Neck Neck exam: Present normal inspection Chest Chest inspection: Present normal inspection and symmetric chest wall rise Respiratory Respiratory exam: Absent respiratory distress Cardiovascular Cardiovascular exam: Present regular rate and normal rhythm Extremities Exam Extremities exam: Present normal capillary refill (Symmetric delayed capillary refill in all digits of the right hand. Punctate laceration that is hemostatic over the right fourth dorsal PIP joint. Sensation intact light touch distally.) and other (Circumferential laceration over the proximal right pinky with disruption of the flexor tissue, flexor jourdan and exposure of underlying tendons.) Neurological Exam Neurological exam: Present alert Psychiatric Psychiatric exam: Present normal affect Skin Skin exam: Present warm and dry Medical Decision Making Jose Inquiry Pt receiving controlled substance: No Vital Signs: 09/30/23 16:03 Temperature 97.9 F Temperature Source Oral Pulse Rate [Left Brachial] 89 Respiratory Rate 20 Blood Pressure [Left Arm] 197/93 H Blood Pressure Mean [Left Arm] 127 Blood Pressure Source [Left Arm] Automatic Cuff Blood Pressure Position [Left Arm] Sitting 02 Sat by Pulse Oximetry 99 Oxygen Delivery Method Room Air Orders (Tests/Meds): ORDERS Category Date Time Status Hand XR right minimum 3 views [XR hand RT min 3V] Stat Exams 09/30/23 16:21 Taken Medical Decision Narrative: In summary patient is a 73-year-old male with no pertinent past medical history presents emergency department for evaluation of traumatic injury sustained to his right hand. Patient is hemodynamically stable nontoxic-appearing upon arrival, afebrile. Wound is hemostatic. Tdap up-to-date. There is significant disruption of the tissues circumferentially of the right proximal pinky as well as the flexor jourdan. Given the significance of the wound patient would likely benefit from hand specialist evaluation today. Given this the case was [facility] who graciously excepted patient for transfer to [facility] for continued evaluation at this time. Plain film of the right hand informally interpreted by me, no acute significantly displaced fracture or dislocation, there is questionable osseous abnormality over the distal proximal phalanx of the ring finger. Given that patient was working on a solid or septic bite with transfer contamination and adjacent to the joint 2 g of Ancef IM will be administered prior to transfer. Critical Care Critical Care Time Critical Care Time: No
--- NOTE | 2023-09-30 16:29 | PC.NURSE ---
placed call to [facility] for hand surgery
[2023-09-30] MEDS: CEFAZOLIN 1GM VIAL 2 GM IM (17:01)
== END 2023-09-30 17:31 | disposition short-term general hospital (02) ==
PROVIDERS: Emergency Provider Emergency Medicine; PCP Internal Medicine Adolescent Medicine
DX: S61.216A Laceration without foreign body of right little finger without damage to nail, initial encounter (principal); Z87.891 Personal history of nicotine dependence; W26.8XXA Contact with other sharp object(s), not elsewhere classified, initial encounter
CPT/HCPCS: 73130; 96372; 99285

== ENCOUNTER 2024-03-17 12:41 | Outpatient (CLI) | payer MEDICARE, SELFPAY ==
--- NOTE | 2024-03-17 12:49 | CT_ITS ---
FINAL REPORT CLINICAL HISTORY: EPIGASTRIC ABDOMINAL PAIN FINDINGS: CT OF THE ABDOMEN AND PELVIS WITH CONTRAST Axial CT images of the abdomen and pelvis were obtained after the administration of oral and iv contrast. Coronal reformatted images were also obtained and reviewed.This study was performed with techniques to keep radiation doses as low as reasonably achievable (ALARA). Individualized dose reduction techniques using automated exposure control or adjustment of mA and/or kV according to the patient's size were employed. Abdomen: The lung bases are clear. The heart is normal in size. The liver has an unremarkable appearance with no focal hepatic lesion. The patient is status post cholecystectomy. The spleen is unremarkable. No adrenal mass is present. There is no pancreatic mass or contrast-enhancement. There is no evidence of biliary ductal or pancreatic ductal dilatation. There is a probable small angiomyolipoma in the right kidney measuring 6 mm. There is a 13 mm low-attenuation mass in the posterior right kidney consistent with a cyst. The aorta is normal in caliber. There is no free fluid or adenopathy. No mass or abnormal fluid collection is seen. Pelvis: The appendix normal. The urinary bladder is unremarkable. There are multiple mildly enlarged bilateral inguinal nodes which are nonspecific and favored to be reactive. There is no evidence of mass or adenopathy. There is no evidence of bowel obstruction. IMPRESSION: No pancreatic mass or contrast-enhancement. 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 Right renal cyst. No follow-up is required. Mildly enlarged bilateral inguinal nodes are nonspecific and favored to be reactive. Reviewed, Interpreted and Dictated by Yrn Boyd III, MD Transcribed by Julisa Sarmiento Authenticated and [facility]
[2024-03-17] MEDS: IOPAMIDOL-370 (76%);100ML BOTTLE 75 ML IV (13:20)
[2024-03-17] MEDS: SODIUM CHLORIDE 0.9% 10ML SYR (RAD ONLY) 10 ML IV (13:20)
[2024-03-17] MEDS: BARIUM SULFATE(READI-CAT2);450ML BOTTLE 450 ML PO (13:20)
== END 2024-03-17 23:59 | disposition home or self-care (01) ==
LOC: RAD 12:42
PROVIDERS: PCP Internal Medicine Adolescent Medicine; Visit Provider Internal Medicine Adolescent Medicine
DX: R10.13 Epigastric pain (principal)
CPT/HCPCS: 74177; Q9967

== ENCOUNTER 2024-10-10 06:48 | Outpatient (CLI) | payer MEDICARE, SELFPAY ==
--- NOTE | 2024-10-10 06:52 | CT_ITS ---
FINAL REPORT TECHNIQUE: Axial images were obtained from the lung apex to the mid abdomen by computed tomography. This study was performed with techniques to keep radiation doses as low as reasonably achievable (ALARA). Individualized dose reduction techniques using automated exposure control or adjustment of mA and/or kV according to the patient's size were employed. CLINICAL HISTORY: SCREENING former smoker quit 25 years ago 2.5ppd x31 years COMPARISON: 07/09/2023 FINDINGS: CHEST CT LOW DOSE CTDI vol (mGy): 2.90 DLP (mGy-cm): 109.42 There is no axillary adenopathy. There are a few small mediastinal lymph nodes. Right paratracheal node measures 1.5 cm, stable. The heart is normal in size. There is mild coronary artery calcification. There is no pericardial or pleural effusion. There is a small nodule in the anterior margin of the minor fissure measuring 5 mm well-seen on image 45 of series 4. Finding is stable. Limited images of the upper abdomen are unremarkable. IMPRESSION: Stable fissural nodule. Lung RADS category 2. Recommend 12 month follow-up low-dose chest CT. Reviewed, Interpreted and Dictated by Toñito Chau MD Transcribed by Diane Guajardo Authenticated and [facility]
== END 2024-10-10 23:59 | disposition home or self-care (01) ==
LOC: RAD 06:49
PROVIDERS: PCP Internal Medicine Adolescent Medicine; Visit Provider Internal Medicine Adolescent Medicine
DX: Z87.891 Personal history of nicotine dependence (principal)
CPT/HCPCS: 71271